=== PATIENT | male | born 1995 | race Caucasian/White ===

== ENCOUNTER 2025-08-27 06:56 | Inpatient (IN) | payer MEDICAID ==
[~2025-08-27] VITALS: Ht 175.3 cm; Wt 99.6 kg
[2025-08-27] MEDS ORDERED: OLAN5TAB52 PO (10:48)
[2025-08-27 14:15] VITALS: BP 140/98; PULSE 78; RESP 18; TEMP 98.6; O2SAT 98
[2025-08-27] MEDS ORDERED: INFLUENZA VIRUS VACCINE TVS (6MO+) 2025-26/PF 45 MCG/0.5 ML SYRINGE IM. ONE (16:15)
[2025-08-27] MEDS ORDERED: PNEUMOCOCCAL VACCINE POLYVALENT 0.5 ML SYRINGE [PPSV23] IM. ONE (16:15)
[2025-08-27] MEDS ORDERED: BACITRACIN 28 GM OINTMENT TP PRN (18:15)
[2025-08-27 20:12] VITALS: BP 123/72; PULSE 78; RESP 18; TEMP 97.7; O2SAT 98
[2025-08-28 08:55] LABS: CHOL/HDL RATIO 3.9 (4.2-7.3); LDL CHOL (CALC.) 80.0 mg/dL (0-130)
[2025-08-28] MEDS: NICOTINE 21 MG/24 HOUR PATCH TD SCH (09:50)
[2025-08-28] MEDS ORDERED: LOPERAMIDE HCL 2 MG CAPSULE PO PRN (10:00)
[2025-08-28] MEDS ORDERED: MAG HYDROX/ALUMINUM HYD/SIMETH ES 30 ML SUSPENSION UDCUP PO PRN (10:00)
[2025-08-28] MEDS ORDERED: ACETAMINOPHEN 325 MG TABLET PO PRN (10:00)
[2025-08-28] MEDS ORDERED: BACITRACIN 28 GM OINTMENT TP PRN (10:00)
[2025-08-28] MEDS ORDERED: BENZOCAINE/MENTHOL [CEPACOL] LOZENGE PO PRN (10:00)
[2025-08-28] MEDS ORDERED: PETROLATUM,WHITE 28 GM JELLY TP PRN (10:00)
[2025-08-28] MEDS ORDERED: ONDANSETRON 4 MG TABLET PO PRN (10:00)
[2025-08-28] MEDS ORDERED: MAGNESIUM HYDROXIDE SUSPENSION 30 ML UDCUP PO PRN (10:00)
[2025-08-28] MEDS ORDERED: ALBUTEROL SULFATE HFA 90 MCG/PUFF 8 GM INHALER IH PRN (10:00)
[2025-08-28] MEDS ORDERED: IBUPROFEN 600 MG TABLET PO PRN (10:00)
[2025-08-28] MEDS ORDERED: DOCUSATE SODIUM 100 MG CAPSULE PO PRN (10:00)
[2025-08-28] MEDS ORDERED: OMEPRAZOLE 20 MG CAPSULE PO PRN (10:00)
[2025-08-28 11:15] VITALS: BP 130/87; PULSE 79; RESP 18; TEMP 97.3; O2SAT 97
[2025-08-28 20:05] VITALS: BP 124/83; PULSE 74; RESP 18; TEMP 97.9; O2SAT 99
[2025-08-28] MEDS: ZOLPIDEM TARTRATE 10 MG TABLET PO PRN (20:39)
[2025-08-29 08:10] VITALS: BP 150/93; PULSE 79; RESP 18; TEMP 99.7; O2SAT 97
[2025-08-29 08:14] LABS: APPEARANCE,URINE CLEAR (CLEAR); GLUCOSE, URINE (UA) NEGATIVE (NEGATIVE); LEUKOCYTE ESTERASE ,URINE NEGATIVE (NEGATIVE); NITRATE,URINE NEGATIVE (NEGATIVE); OCCULT BLOOD,URINE NEGATIVE (NEGATIVE); PH,URINE DRUG SCREEN 6.5 (5.0-8.0); SPECIFIC GRAVITIY, URINE 1.013 (1.003-1.030)
[2025-08-29 08:21] LABS: AMPHET/METH SCREEN,URINE NEGATIVE (NEGATIVE); BARBITURATE SCREEN, URINE NEGATIVE (NEGATIVE); CANNABINOID SCREEN,URINE NEGATIVE (NEGATIVE); COCAINE SCREEN,URINE NEGATIVE (NEGATIVE); METHADONE SCREEN, URINE NEGATIVE (NEGATIVE)
[2025-08-29 08:26] LABS: ALCOHOL, URINE DRUG SCREEN NEGATIVE (NEGATIVE)
[2025-08-29 08:29] VITALS: BP 136/87; TEMP 98.7
[2025-08-29 20:34] VITALS: BP 151/95; PULSE 71; RESP 18; TEMP 98.4; O2SAT 97
[2025-08-30 08:42] VITALS: BP 136/87; PULSE 90; RESP 18; TEMP 97.9; O2SAT 98
[2025-08-30 23:18] VITALS: BP 141/87; PULSE 79; RESP 17; TEMP 98.3; O2SAT 97
[2025-08-31 08:09] VITALS: BP 133/78; PULSE 76; RESP 18; TEMP 98.4; O2SAT 97
[2025-09-01 08:18] VITALS: BP 128/72; PULSE 66; RESP 17; TEMP 98.6; O2SAT 97
[2025-09-01 20:17] VITALS: BP 137/82; PULSE 65; RESP 18; TEMP 97.8; O2SAT 98
[2025-09-02 08:24] VITALS: BP 122/62; PULSE 68; RESP 17; TEMP 97.4; O2SAT 96
[2025-09-02] MEDS ORDERED: OLAN10TA22 PO (11:09)
[2025-09-02 20:17] VITALS: BP 124/69; PULSE 66; RESP 17; TEMP 98.5; O2SAT 97
[2025-09-03 08:21] VITALS: BP 148/66; PULSE 75; RESP 18; TEMP 97.7; O2SAT 99
== END 2025-09-03 17:02 | disposition home or self-care (01) | DRG 750 ==
LOC: B2S 12:22
PROVIDERS: ADMIT Psychiatry & Neurology Psychiatry; ATTEND Psychiatry & Neurology Psychiatry
DX: F20.9 Schizophrenia, unspecified (principal); R45.851 Suicidal ideations; F12.10 Cannabis abuse, uncomplicated; F15.10 Other stimulant abuse, uncomplicated; F41.9 Anxiety disorder, unspecified; G47.00 Insomnia, unspecified; K59.00 Constipation, unspecified; R03.0 Elevated blood-pressure reading, without diagnosis of hypertension
CPT/HCPCS: 80061; 80307; 81003; 83036; 84436; 84443; 86592

== ENCOUNTER → 2025-08-27 | Emergency (ER) | payer BC, MEDICAID ==
[~2025-08-27] VITALS: Ht 175.3 cm; Wt 100.0 kg
[~2025-08-27] MED LIST: OLAN5TAB52 PO
[2025-08-27 10:48] VITALS: BP 140/76; PULSE 63; RESP 18; TEMP 98.1; O2SAT 99
[2025-08-27] MEDS: ACETAMINOPHEN 500 MG TABLET PO ONE (10:57)
[2025-08-27 10:59] LABS: PLATELET COUNT (AUTO) 329 K/uL (150-450); RED BLOOD CELL COUNT(AUTO) 5.05 MIL/uL (4.50-5.90); RED CELL DISTRIBUTION WIDTH 13.0 % (11.5-14.5); WHITE BLOOD COUNT (AUTO) 6.8 K/uL (4.5-11.0)
[2025-08-27 11:12] LABS: CALCIUM, TOTAL 8.6 mg/dL (8.8-10.5); CREATININE 0.88 mg/dL (0.60-1.30); GLOMERULAR FILTR. RATE CALC > 60 mL/min (>60); GLUCOSE,RANDOM 70 mg/dL (70-110); SODIUM SERUM 141 mmol/L (136-145); UREA NITROGEN, BLOOD 16 mg/dL (7-18)
[2025-08-27 11:19] LABS: ASPARTATE AMINOTRANSFERASE 63 U/L (15-37); TOTAL PROTEIN, SERUM 6.9 g/dL (6.4-8.2)
[2025-08-27 11:22] LABS: COVID AG,FIA SOURCE NASAL SWAB
[2025-08-27 11:27] LABS: ALCOHOL, BLOOD (SERUM) < 3 mg/dL (0-10)
[2025-08-27 12:02] LABS: SARS-COV2 (COVID) ANTIGEN,FIA Negative (Negative)
== END ==
LOC: EMS 10:32
DX: M25.562 Pain in left knee (principal); Z02.89 Encounter for other administrative examinations; Z20.822 Contact with and (suspected) exposure to COVID-19; Z79.899 Other long term (current) drug therapy
CPT/HCPCS: 99284; 87426; 80048; 80076; 85025; 36415; 73562; G0480